=== PATIENT | male | born 1990 | race Caucasian/White ===

== ENCOUNTER 2017-08-23 14:55 | Emergency (ER) | payer SELFPAY ==
[~2017-08-23] VITALS: Ht 182.9 cm; Wt 72.6 kg
[~2017-08-23 14:55] MED LIST: ACHD5005 PO; AMOX500C2 PO; AZIT250T81 PO; CIPR500T4 PO; GENT5DRO30 RIGHT EAR; HYDR-1231 PO; HYDR-34 PO; HYDR-757 PO; KETO75CA PO; LAMO100T PO; LAMO150T3 PO; LAMO200T14 PO; LAMO200T2 PO; LEVE100015 PO; LEVE10006 PO; LEVE500T PO; LEVE500T6 PO; LORA1TAB PO; METR500T21 PO; NAPR-243 PO; NAPR220T66 PO; ONDA8TAB13 PO; [UNRECOGNIZED DRUG - CODE] PO
--- OUTSIDE RECORDS SUMMARY | 2017-08-23 15:00 | XMS REPORT ---
Author Author JACKY LOPEZ [employer] Address Unknown Phone Unavailable Care Team Providers Care Application Development Liaison Name Role Phone JACKY LOPEZ CP Unavailable Allergies, Adverse Reactions, Alerts Substance Reaction Event Type N.K.D.A. Info Not Available Non Drug Allergy Problems Problem Type Condition Code Onset Dates Condition Status Problem FH: diabetes mellitus Z83.3 Active Assessment Unspecified epilepsy without mention of intractable epilepsy G40.909 Active Problem Unspecified epilepsy without mention of intractable epilepsy G40.909 Active Assessment FH: diabetes mellitus Z83.3 Active Medications Medication Code System Code Instructions Start Date End Date Status Dosage Lamictal [facility] [address]-72 200 MG Orally 3 times a day. Before bed take 2 tablets. February 19, 2015 1 tablet Keppra [facility] [address]-35 1,000 mg 3 times a day Sep 11, 2014 1 Tablet by Po route 2 times per day to prevent seizures Procedures Procedure Coding System Code Date Office Visit, Est Pt., Level 3 CPT-4 98555 Sep 14, 2015 Vital Signs Date/Time: Sep 14, 2015 Temperature 97.3 F Weight 167.0 lbs Height 70 in BMI 23.96 Index Blood Pressure Diastolic 62 mmHg Blood Pressure Systolic 102 mmHg Cardiac Monitoring Heart Rate 68 bpm Results No Known Results Summary Purpose [employer] Submission
--- OUTSIDE RECORDS SUMMARY | 2017-08-23 15:00 | XMS REPORT ---
Author Author JORDAN CONDON Organization [employer] Address Unknown Phone Unavailable Care Team Providers Care Score Caller Name Role Phone JORDAN CONDON CP Unavailable Allergies, Adverse Reactions, Alerts Substance Reaction Event Type N.K.D.A. Info Not Available Non Drug Allergy Problems Problem Type Condition Code Onset Dates Condition Status Problem FH: diabetes mellitus Z83.3 Active Assessment Unspecified epilepsy without mention of intractable epilepsy G40.909 Active Problem Unspecified epilepsy without mention of intractable epilepsy G40.909 Active Medications Medication Code System Code Instructions Start Date End Date Status Dosage Lamictal [facility] [address]-50 200 mg Orally at bedtime 2 tablet Lorazepam [facility] [address]-39 1 MG Orally Once a day 1 tablet as needed Procedures Procedure Coding System Code Date Office Visit, Est Pt., Level 3 CPT-4 37922 Jun 28, 2016 Vital Signs Date/Time: Jun 28, 2016 Cardiac Monitoring Heart Rate 72 bpm Weight 159.0 lbs Height 70 in BMI 22.81 Index Blood Pressure Diastolic 68 mmHg Blood Pressure Systolic 110 mmHg Results No Known Results Summary Purpose [employer] Submission
--- OUTSIDE RECORDS SUMMARY | 2017-08-23 15:03 | XMS REPORT ---
Author Author RON MCKAY Organization [employer] Address Unknown Phone Unavailable Care Team Providers Care Edge Setter Name Role Phone RON MCKAY CP Unavailable Allergies No Known Allergies Problems Problem Type Condition Code Onset Dates Condition Status Problem FH: diabetes mellitus Z83.3 Active Problem Unspecified epilepsy without mention of intractable epilepsy G40.909 Active Medications Medication Code System Code Instructions Start Date End Date Status Dosage Lamotrigine [facility] [address]-25 200 mg Orally Twice a day at 0800 and 1400 1 tablet Lorazepam [facility] [address]-62 1 MG Orally Once a day 1 tablet as needed Lamictal [facility] [address]-03 400 mg Orally at bedtime 1 tablet Results No Known Results Summary Purpose eClinicalWorks Submission
--- OUTSIDE RECORDS SUMMARY | 2017-08-23 15:03 | XMS REPORT | Continuity of Care Document ---
Author Author [facility] Address Unknown Phone Unavailable Allergies Active Description Code Type Severity Reaction Onset Reported/Identified Relationship to Patient Clinical Status Yes No Known Drug Allergies [id number] Drug Allergy Unknown N/A 10/15/2013 Yes hydromorphone [id number] Drug Allergy Moderate hives 01/06/2015 Yes vancomycin [id number] Drug Allergy Moderate hives 01/06/2015 Medications There is no data. Problems Date Dx Coded Attending Type Code Diagnosis Diagnosed By 07/13/2012 Ot 780.39 OTHER CONVULSIONS 06/10/2013 DEBRA PGUH DO Ot 345.90 EPILEPSY UNSPEC W/O MENTION INTRACTABLE 06/10/2013 DEBRA PUGH DO Ot V15.81 HX OF PAST NONCOMPLIANCE 08/11/2013 LIONEL DAILY, MARIA ISABEL Patino Ot 345.10 GEN CONVULS EPILEPSY W/O MENT OF INTRACT 08/11/2013 MARIA ISABEL FLOWERS MD Ot 458.9 HYPOTENSION NOS 09/04/2013 TAHIR ABAD APRN S 780.8 GENERALIZED HYPERHIDROSIS 09/04/2013 TAHIR ABAD APRN S 786.2 COUGH 09/04/2013 TAHIR ABAD APRN S V18.0 FAMILY HISTORY OF DIABETES MELLITUS 09/04/2013 ERIC BOWEN GREGORY R 780.8 GENERALIZED HYPERHIDROSIS 09/04/2013 ERIC BOWEN GREGORY R 786.2 COUGH 09/04/2013 ERIC BOWEN GREGORY R V18.0 FAMILY HISTORY OF DIABETES MELLITUS 09/04/2013 ERIC BOWEN GREGORY R 780.8 GENERALIZED HYPERHIDROSIS 09/04/2013 ERIC BOWEN, GREGORY R 786.2 COUGH 09/04/2013 ERIC BOWEN GREGORY R V18.0 FAMILY HISTORY OF DIABETES MELLITUS 09/04/2013 ABAD REYES APRNINA R 780.8 GENERALIZED HYPERHIDROSIS 09/04/2013 ERIC BOWEN GREGORY R 786.2 COUGH 09/04/2013 ERIC BOWEN, GREGORY R V18.0 FAMILY HISTORY OF DIABETES MELLITUS 09/04/2013 ESTEFANY CARIDAD HILLA K 780.8 GENERALIZED HYPERHIDROSIS 09/04/2013 ESTEFANY HILLCARIDADA K 786.2 COUGH 09/04/2013 ESTEFANY HILL JENS K V18.0 FAMILY HISTORY OF DIABETES MELLITUS 09/04/2013 ESTEFANY HILL JENS K 780.8 GENERALIZED HYPERHIDROSIS 09/04/2013 ESTEFANY HILLCARIDADA K 786.2 COUGH 09/04/2013 ESTEFANY HILL JENS K V18.0 FAMILY HISTORY OF DIABETES MELLITUS 10/16/2013 MARIA TERESA DAILY, XAVIER Fletcher Ot 345.10 GEN CONVULS EPILEPSY W/O MENT OF INTRACT 10/16/2013 XAVIER MOREL MD Ot V04.81 ND FOR PROPHYLACTIC VACCIN AND INOCULATI 10/30/2013 GREGORY REYES APRN R 345.90 SEIZURE DISORDER 10/30/2013 GREGORY REYES APRN R 345.90 SEIZURE DISORDER 10/30/2013 GREGORY REYES APRN R 345.90 SEIZURE DISORDER 10/30/2013 JENS ALLISON DO K 345.90 SEIZURE DISORDER 10/30/2013 JENS ALLISON DO K 345.90 SEIZURE DISORDER 04/18/2014 KENNY FAJARDO DO Ot 825.25 FX METATARSAL-CLOSED 04/18/2014 KENNY FAJARDO DO Ot 959.7 LOWER LEG INJURY NOS 04/18/2014 KENNY FAJARDO DO Ot E000.8 OTHER EXTERNAL CAUSE STATUS 04/18/2014 KENNY FAJARDO DO Ot E006.2 ACTIVITIES INVOLVING GOLF 04/18/2014 KENNY FAJARDO DO Ot E849.4 ACCID IN RECREATION AREA 04/18/2014 KENNY FAJARDO DO Ot E928.9 ACCIDENT NOS 06/17/2014 JENS ALLISON DO Ot 305.1 TOBACCO USE DISORDER 06/17/2014 JENS ALLISON DO Ot 305.20 CANNABIS ABUSE-UNSPEC 06/17/2014 JENS ALLISON DO Ot 345.90 EPILEPSY UNSPEC W/O MENTION INTRACTABLE 06/17/2014 JENS ALLISON DO Ot V04.81 ND FOR PROPHYLACTIC VACCIN AND INOCULATI 08/22/2014 PEDRITO CAMPOS MD, Ot 305.00 ALCOHOL ABUSE-UNSPEC 08/22/2014 PEDRITO CAMPOS MD Ot 874.8 OPEN WOUND OF NECK NEC 08/22/2014 PEDRITO CAMPOS MD Ot E000.8 OTHER EXTERNAL CAUSE STATUS 08/22/2014 PEDRITO CAMPOS MD Ot E849.0 ACCIDENT IN HOME 08/22/2014 PEDRITO CAMPOS MD Ot E956 ESTELLA/SELF-INJ BY CUT INST 08/22/2014 PEDRITO CAMPOS MD Ot V06.1 [id number], COMBINED [ 08/22/2014 PEDRITO CAMPOS MD Ot V62.84 SUICIDAL IDEATION 09/13/2014 EMILY MARCOS ENGRAVER BLOCK Ot 521.00 UNSPEC DENTAL CARIES 09/13/2014 EMILY MARCOS ENGRAVER BLOCK Ot 525.9 DENTAL DISORDER NOS 12/20/2014 BREONNA DAILY, TREE Barrientos Ot 486 PNEUMONIA, ORGANISM NOS 12/20/2014 BREONNA DAILY, TREE Barrientos Ot 728.85 SPASM OF MUSCLE 12/20/2014 BREONNA DAILY, TREE Barrientos Ot 786.52 PAINFUL RESPIRATION 01/05/2015 ALLISON DO, JENS K Ot 305.1 01/05/2015 ALLISON DO, JENS K Ot 345.90 01/05/2015 ALLISON DO, JENS K Ot 486 01/05/2015 ALLISON DO, JENS K Ot 510.9 01/05/2015 ALLISON DO, JENS K Ot 511.9 01/05/2015 ALLISON DO, JENS K Ot 512.89 01/05/2015 ALLISON DO, JENS K Ot 783.0 01/05/2015 ALLISON DO, JENS K Ot 787.02 01/05/2015 ALLISON DO, EJNS K Ot V15.52 01/06/2015 ALLISON DO, JENS K Ot 305.1 01/06/2015 ALLISON DO, JENS K Ot 345.90 01/06/2015 ALLISON DO, JENS K Ot 486 01/06/2015 ALLISON DO, JENS K Ot 510.9 01/06/2015 ALLISON DO, JENS K Ot 511.9 01/06/2015 ALLISON DO, JENS K Ot 512.89 01/06/2015 ALLISON DO, JENS K Ot 783.0 01/06/2015 ALLISON DO, JENS K Ot 787.02 01/06/2015 ALLISON DO, JENS K Ot V15.52 01/06/2015 ALLISON DO, JENS K Ot 305.1 01/06/2015 ALLISON DO, JENS K Ot 345.90 01/06/2015 ALLISON DO, JENS K Ot 486 01/06/2015 ALLISON DO, JENS K Ot 510.9 01/06/2015 ALLISON DO, JENS K Ot 511.9 01/06/2015 ALLISON DO, JENS K Ot 512.89 01/06/2015 ALLISON DO, JENS K Ot 783.0 01/06/2015 ALLISON DO, JENS K Ot 787.02 01/06/2015 ALLISON DO, JENS K Ot V15.52 01/07/2015 ALLISON DO, JENS K Ot 305.1 01/07/2015 ALLISON DO, JENS K Ot 345.90 01/07/2015 ALLISON DO, JENS K Ot 486 01/07/2015 ALLISON DO, JENS K Ot 510.9 01/07/2015 ALLISON DO, JENS K Ot 511.9 01/07/2015 ALLISON DO, JENS K Ot 512.89 01/07/2015 ALLISON DO, JENS K Ot 783.0 01/07/2015 ALLISON DO, JENS K Ot 787.02 01/07/2015 ALLISON DO, JENS K Ot V15.52 01/09/2015 ALLISON DO, JENS K Ot 041.12 METHICILLIN RESISTANT STAPHYLOCOCCUS AUR 01/09/2015 ALLISON DO, JENS K Ot 305.1 TOBACCO USE DISORDER 01/09/2015 ALLISON DO, JENS K Ot 345.90 EPILEPSY UNSPEC W/O MENTION INTRACTABLE 01/09/2015 ALLISON DO, JENS K Ot 486 01/09/2015 ALLISON DO, JENS K Ot 510.9 EMPYEMA W/O FISTULA 01/09/2015 ALLISON DO, JENS K Ot 511.9 PLEURAL EFFUSION NOS 01/09/2015 ALLISON DO, JENS K Ot 512.89 OTHER PNEUMOTHORAX 01/09/2015 ALLISON DO, JENS K Ot 513.0 ABSCESS OF LUNG 01/09/2015 ALLISON DO, JENS K Ot 693.0 DRUG DERMATITIS NOS 01/09/2015 ALLISON DO, JENS K Ot 783.0 ANOREXIA 01/09/2015 ALLISON DO, JENS K Ot 787.02 NAUSEA ALONE 01/09/2015 ESTEFANY DO JENS K Ot E930.8 ADV EFF ANTIBIOTICS NEC 01/09/2015 JENS ALLISON DO Ot 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 01/13/2015 BREONNA DAILY, TREE Barrientos Ot 338.18 OTHER ACUTE POSTOPERATIVE PAIN 01/13/2015 BREONNA DAILY, TREE Barrientos Ot 786.50 CHEST PAIN NOS 01/29/2015 DONNELL DAILY, LEE ANN Lee Ot 998.59 OTH POSTOPER INFECTION 02/03/2015 MARIA TERESA DAILY, XAVIER Fletcher Ot 345.10 GEN CONVULS EPILEPSY W/O MENT OF INTRACT 02/03/2015 MARIA TERESA DAILY, XAVIER Fletcher Ot 907.0 LT EFF INTRACRANIAL INJ 02/03/2015 MARIA TERESA DAILY, XAVIER Fletcher Ot E929.9 LATE EFF ACCIDENT NOS 02/03/2015 AMRIA TERESA DAILY, XAVIER Fletcher Ot 345.10 02/03/2015 XAVIER MOREL MD Ot 907.0 02/03/2015 XAVIER MOREL MD Ot E929.9 09/03/2015 JENS ALLISON DO Ot F12.90 CANNABIS USE, UNSPECIFIED, UNCOMPLICATED 09/03/2015 JENS ALLISON DO Ot F17.210 NICOTINE DEPENDENCE, CIGARETTES, UNCOMPL 09/03/2015 JENS ALLISON DO Ot G40.209 LOCAL-REL SYMPTC EPI W CMPLX PRT SEIZ,NO 09/03/2015 JENS ALLISON DO Ot Z91.14 PATIENT'S OTHER NONCOMPLIANCE WITH MEDIC 10/17/2015 LIONEL DAILY, MARIA ISABEL Patino Ot G40.409 OTH GENERALIZED EPILEPSY, NOT INTRACTABL 11/04/2015 CARISA MALDONADO Ot F12.10 CANNABIS ABUSE, UNCOMPLICATED 11/04/2015 CARISA MALDONADO Ot F17.210 NICOTINE DEPENDENCE, CIGARETTES, UNCOMPL 11/04/2015 CARISA MALDONADO Ot N39.0 URINARY TRACT INFECTION, SITE NOT SPECIF 11/04/2015 CARISA MALDONADO Ot R11.2 NAUSEA WITH VOMITING, UNSPECIFIED 11/05/2015 CARISA MALDONADO Ot F12.10 11/05/2015 CARISA MALDONADO Ot F17.210 11/05/2015 CARISA MALDONADO Ot N39.0 11/05/2015 CARISA MALDONADO Ot R11.2 11/16/2015 LAINE ROCA MD, Ot F17.210 NICOTINE DEPENDENCE, CIGARETTES, UNCOMPL 11/16/2015 LAINE ROCA MD, Ot G40.409 OTH GENERALIZED EPILEPSY, NOT INTRACTABL 11/16/2015 LAINE ROCA MD, Ot S01.82XA LACERATION W FOREIGN BODY OF OTH PART OF 11/16/2015 LAINE ROCA MD, Ot S02.69XA FRACTURE OF MANDIBLE OF OTH SITE, INIT F 11/16/2015 LAINE ROCA MD, Ot S02.8XXA FRACTURES OF OTH SKULL AND FACIAL BONES, 11/16/2015 LAINE ROCA MD, Ot W01.10XA FALL SAME LEV FROM SLIP/TRIP W STRIKE AG 11/16/2015 LAINE ROCA MD, Ot Y92.[address] 11/16/2015 LAINE ROCA MD, Ot Y99.8 OTHER EXTERNAL CAUSE STATUS 11/16/2015 LAINE ROCA MD, Ot Z91.14 PATIENT'S OTHER NONCOMPLIANCE WITH MEDIC 02/24/2016 KENNY FAJARDO DO Ot 825.25 FX METATARSAL-CLOSED 02/24/2016 KENNY FAJARDO DO Ot 959.7 LOWER LEG INJURY NOS 02/24/2016 KENNY FAJARDO DO Ot E000.8 OTHER EXTERNAL CAUSE STATUS 02/24/2016 KENNY FAJARDO DO Ot E006.2 ACTIVITIES INVOLVING GOLF 02/24/2016 KENNY FAJARDO DO Ot E849.4 ACCID IN RECREATION AREA 02/24/2016 KENNY FAJARDO DO Ot E928.9 ACCIDENT NOS 02/24/2016 TREE RAVI MD Ot 486 PNEUMONIA, ORGANISM NOS 02/24/2016 TREE RAVI MD Ot 728.85 SPASM OF MUSCLE 02/24/2016 TREE RAVI MD Ot 786.52 PAINFUL RESPIRATION 06/06/2016 JENS ALLISON DO, Ot F17.210 NICOTINE DEPENDENCE, CIGARETTES, UNCOMPL 06/06/2016 JENS ALLISON DO, Ot G40.909 EPILEPSY, UNSP, NOT INTRACTABLE, WITHOUT 06/06/2016 JENS ALLISON DO, Ot Z23 ENCOUNTER FOR IMMUNIZATION 06/06/2016 JENS ALLIOSN DO, Ot Z91.14 PATIENT'S OTHER NONCOMPLIANCE WITH MEDIC Procedures Code Description [place] [address] ROUTINE VENIPUNCTURE 09/04/2013 18438 XRAY CHEST 2 VIEW 09/04/2013 84521 UA LONG DIP 09/04/[id number] GFR CALC (RESULT ONLY) 09/04/2013 68524 CMP 09/04/2013 02985 CBC 09/05/2013 02239 ROUTINE VENIPUNCTURE 02/20/2014 90091 CMP 02/20/20145070076 GFR CALC (RESULT ONLY) 02/20/2014 34.91 01/01/2015 32.39 01/05/2015 34.51 01/05/2015 Results Test Result Range Complete urinalysis with reflex to culture - 06/05/16 02:05 Urine color determination YELLOW NRG Urine clarity determination CLEAR NRG Urine pH measurement by test strip 5 5-9 Specific gravity of urine by test strip 1.025 1.016- 1.022 Urine protein assay by test strip, semi-quantitative NEGATIVE NEGATIVE Urine glucose detection by automated test strip NEGATIVE NEGATIVE Erythrocytes detection in urine sediment by light microscopy NEGATIVE NEGATIVE Urine ketones detection by automated test strip 3+ NEGATIVE Urine nitrite detection by test strip NEGATIVE NEGATIVE Urine total bilirubin detection by test strip NEGATIVE NEGATIVE Urine urobilinogen measurement by automated test strip (mass/volume) NORMAL NORMAL Urine leukocyte esterase detection by dipstick NEGATIVE NEGATIVE Automated urine sediment erythrocyte count by microscopy (number/high power field) NONE NRG Automated urine sediment leukocyte count by microscopy (number/high power field ) NONE NRG Bacteria detection in urine sediment by light microscopy NEGATIVE NRG Squamous epithelial cells detection in urine sediment by light microscopy 2-5 NRG Crystals detection in urine sediment by light microscopy NONE NRG Casts detection in urine sediment by light microscopy NONE NRG Mucus detection in urine sediment by light microscopy SMALL NRG Complete urinalysis with reflex to culture NO NRG Urine drug screening test - 06/05/16 02:05 Urine phencyclidine detection by screening method NEGATIVE NEGATIVE Urine benzodiazepines detection by screening method POSITIVE NEGATIVE Urine cocaine detection NEGATIVE NEGATIVE Urine amphetamines detection by screening method NEGATIVE NEGATIVE Urine methamphetamine detection by screening method NEGATIVE NEGATIVE Urine cannabinoids detection by screening method POSITIVE NEGATIVE Urine opiates detection by screening method NEGATIVE NEGATIVE Urine barbiturates detection NEGATIVE NEGATIVE Screening urine tricyclic antidepressants detection NEGATIVE NEGATIVE Urine methadone detection by screening method NEGATIVE NEGATIVE Urine oxycodone detection NEGATIVE NEGATIVE Urine propoxyphene detection NEGATIVE NEGATIVE Urine buprenophrine screen NEGATIVE NEGATIVE Complete blood count (CBC) with automated white blood cell (WBC) differential - 06/05/16 14:57 Blood leukocytes automated count (number/volume) 16.8 10*3/uL 4.3-11.0 Blood erythrocytes automated count (number/volume) 4.77 10*6/uL 4.35-5.85 Venous blood hemoglobin measurement (mass/volume) 14.6 g/dL 13.3-17.7 Blood hematocrit (volume fraction) 43 % 40-54 Automated erythrocyte mean corpuscular volume 90 [foz_us] 80-99 Automated erythrocyte mean corpuscular hemoglobin (mass per erythrocyte) 31 pg 25-34 Automated erythrocyte mean corpuscular hemoglobin concentration measurement ( mass/volume) 34 g/dL 32-36 Automated erythrocyte distribution width ratio 12.9 % 10.0-14.5 Automated blood platelet count (count/volume) 317 10*3/uL 130-400 Automated blood platelet mean volume measurement 10.5 [foz_us] 7.4-10.4 Automated blood neutrophils/100 leukocytes 89 % 42-75 Automated blood lymphocytes/100 leukocytes 6 % 12-44 Blood monocytes/100 leukocytes 6 % 0-12 Automated blood eosinophils/100 leukocytes 0 % 0-10 Automated blood basophils/100 leukocytes 0 % 0-10 Blood neutrophils automated count (number/volume) 14.9 10*3 1.8-7.8 Blood lymphocytes automated count (number/volume) 0.9 10*3 1.0-4.0 Blood monocytes automated count (number/volume) 0.9 10*3 0.0-1.0 Automated eosinophil count 0.1 10*3/uL 0.0-0.3 Automated blood basophil count (count/volume) 0.0 10*3/uL 0.0-0.1 Comprehensive metabolic panel - 06/05/16 14:57 Serum or plasma sodium measurement (moles/volume) 139 mmol/L 135-145 Serum or plasma potassium measurement (moles/volume) 4.2 mmol/L 3.6-5.0 Serum or plasma chloride measurement (moles/volume) 106 mmol/L 98-107 Carbon dioxide 19 mmol/L 21-32 Serum or plasma anion gap determination (moles/volume) 14 mmol/L 5-14 Serum or plasma urea nitrogen measurement (mass/volume) 8 mg/dL 7-18 Serum or plasma creatinine measurement (mass/volume) 1.01 mg/dL 0.60-1.30 Serum or plasma urea nitrogen/creatinine mass ratio 8 NRG Serum or plasma creatinine measurement with calculation of estimated glomerular filtration rate > NRG Serum or plasma glucose measurement (mass/volume) 87 mg/dL 70-105 Serum or plasma calcium measurement (mass/volume) 9.3 mg/dL 8.5-10.1 Serum or plasma total bilirubin measurement (mass/volume) 0.4 mg/dL 0.1-1.0 Serum or plasma alkaline phosphatase measurement (enzymatic activity/volume) 77 U/L 40-136 Serum or plasma aspartate aminotransferase measurement (enzymatic activity/ volume) 20 U/L 5-34 Serum or plasma alanine aminotransferase measurement (enzymatic activity/volume ) 18 U/L 0-55 Serum or plasma protein measurement (mass/volume) 6.8 g/dL 6.4-8.2 Serum or plasma albumin measurement (mass/volume) 4.5 g/dL 3.2-4.5 Serum or plasma thyrotropin measurement by detection limit <=0.05 miu/l (units/ volume) - 06/05/16 14:57 Serum or plasma thyrotropin measurement by detection limit <=0.05 miu/l (units/ volume) 1.64 u[iU]/mL 0.35-4.94 Blood manual differential performed detection - 06/05/16 14:57 Blood monocytes/100 leukocytes 3 % NRG Manual blood segmented neutrophils/100 leukocytes 88 % NRG Blood band neutrophils/100 leukocytes 1 % NRG Manual blood lymphocytes/100 leukocytes 8 % NRG Manual eosinophils/100 leukocytes in nose 0 % NRG Manual blood basophils/100 leukocytes 0 % NRG Blood erythrocyte morphology finding identification NORMAL NRG Serum or plasma ethanol measurement (mass/volume) - 06/05/16 14:57 Serum or plasma ethanol measurement (mass/volume) < mg/dL <10 Complete blood count (CBC) with automated white blood cell (WBC) differential - 06/06/16 03:50 Blood leukocytes automated count (number/volume) 14.1 10*3/uL 4.3-11.0 Blood erythrocytes automated count (number/volume) 4.33 10*6/uL 4.35-5.85 Venous blood hemoglobin measurement (mass/volume) 13.3 g/dL 13.3-17.7 Blood hematocrit (volume fraction) 39 % 40-54 Automated erythrocyte mean corpuscular volume 90 [foz_us] 80-99 Automated erythrocyte mean corpuscular hemoglobin (mass per erythrocyte) 31 pg 25-34 Automated erythrocyte mean corpuscular hemoglobin concentration measurement ( mass/volume) 34 g/dL 32-36 Automated erythrocyte distribution width ratio 13.0 % 10.0-14.5 Automated blood platelet count (count/volume) 299 10*3/uL 130-400 Automated blood platelet mean volume measurement 10.8 [foz_us] 7.4-10.4 Automated blood neutrophils/100 leukocytes 77 % 42-75 Automated blood lymphocytes/100 leukocytes 13 % 12-44 Blood monocytes/100 leukocytes 8 % 0-12 Automated blood eosinophils/100 leukocytes 1 % 0-10 Automated blood basophils/100 leukocytes 0 % 0-10 Blood neutrophils automated count (number/volume) 10.9 10*3 1.8-7.8 Blood lymphocytes automated count (number/volume) 1.9 10*3 1.0-4.0 Blood monocytes automated count (number/volume) 1.2 10*3 0.0-1.0 Automated eosinophil count 0.1 10*3/uL 0.0-0.3 Automated blood basophil count (count/volume) 0.0 10*3/uL 0.0-0.1 Comprehensive metabolic panel - 06/06/16 03:50 Serum or plasma sodium measurement (moles/volume) 139 mmol/L 135-145 Serum or plasma potassium measurement (moles/volume) 3.8 mmol/L 3.6-5.0 Serum or plasma chloride measurement (moles/volume) 108 mmol/L 98-107 Carbon dioxide 19 mmol/L 21-32 Serum or plasma anion gap determination (moles/volume) 12 mmol/L 5-14 Serum or plasma urea nitrogen measurement (mass/volume) 8 mg/dL 7-18 Serum or plasma creatinine measurement (mass/volume) 0.84 mg/dL 0.60-1.30 Serum or plasma urea nitrogen/creatinine mass ratio 10 NRG Serum or plasma creatinine measurement with calculation of estimated glomerular filtration rate > NRG Serum or plasma glucose measurement (mass/volume) 84 mg/dL 70-105 Serum or plasma calcium measurement (mass/volume) 8.6 mg/dL 8.5-10.1 Serum or plasma total bilirubin measurement (mass/volume) 0.7 mg/dL 0.1-1.0 Serum or plasma alkaline phosphatase measurement (enzymatic activity/volume) 76 U/L 40-136 Serum or plasma aspartate aminotransferase measurement (enzymatic activity/ volume) 18 U/L 5-34 Serum or plasma alanine aminotransferase measurement (enzymatic activity/volume ) 15 U/L 0-55 Serum or plasma protein measurement (mass/volume) 6.2 g/dL 6.4-8.2 Serum or plasma albumin measurement (mass/volume) 4.0 g/dL 3.2-4.5 Encounters ACCT No. Visit Date/Time Discharge Status Pt. Type Provider Facility Loc./Unit Complaint [id number] 08/24/2014 00:00:00 08/24/2014 23:59:59 CLS Outpatient JENS ALLISON DO [id number] 07/06/2014 14:14:00 07/06/2014 23:59:59 CLS Outpatient JENS ALLISON DO [id number] 06/24/2014 13:36:00 06/24/2014 23:59:59 CLS Outpatient GREGORY REYES APRN [id number] 02/20/2014 13:31:00 02/20/2014 23:59:59 CLS Outpatient GREGORY REYES APRN [id number] 10/30/2013 10:54:00 10/30/2013 23:59:59 CLS Outpatient GREGORY REYES APRN [id number] 09/04/2013 09:45:00 09/04/2013 23:59:59 CLS Outpatient TAHIR ABAD APRN [id number] 06/05/2016 18:27:00 06/06/2016 10:40:00 DIS Inpatient JENS ALLISON DO [facility] ICU RECURRENT SEIZURES, MEDICATION NONCOMPLIANCE [id number] 11/15/2015 19:25:00 11/16/2015 11:11:00 DIS Inpatient LAINE ROCA MD [facility] 4TH FACIAL FRACTURE, UNCONTROLLED SEIZURE DISORDER [id number] 11/04/2015 17:50:00 11/04/2015 21:30:00 DIS Emergency CARISA MALDONADO [facility] ER [id number] 10/16/2015 15:10:00 10/17/2015 11:45:00 DIS Inpatient MARIA ISABEL FLOWERS MD [facility] ICU AGITATED DELIRIUM SEIZURES [id number] 09/02/2015 21:19:00 09/03/2015 13:10:00 DIS Inpatient JENS ALLISON DO [facility] 4TH SEIZURE,MULTIPLE [id number] 02/02/2015 13:19:00 02/03/2015 11:10:00 DIS Inpatient MARIA TERESA DAILY, XAVIER Fletcher [facility] SURGICAL [id number] 01/29/2015 22:25:00 01/29/2015 23:08:00 DIS Emergency LEE ANN JACOBO MD [facility] ER [id number] 01/13/2015 20:24:00 01/13/2015 22:06:00 DIS Emergency BREONNA DAILY, TREE Barrientos [facility] ER [id number] 01/01/2015 10:42:00 01/09/2015 11:15:00 DIS Inpatient JENS ALLISON DO [facility] SURGICAL [id number] 12/20/2014 09:24:00 12/20/2014 10:31:00 DIS Emergency TREE RAVI MD [facility] ER [id number] 09/13/2014 13:35:00 09/13/2014 14:10:00 DIS Emergency EMILY MARCOS APRN [facility] ER [id number] 08/22/2014 05:16:00 08/22/2014 09:03:00 DIS Emergency PEDRITO CAMPOS MD [facility] ER [id number] 06/16/2014 03:32:00 06/17/2014 14:40:00 DIS Inpatient JENS ALLISON DO [facility] ICU [id number] 04/18/2014 10:20:00 04/18/2014 11:04:00 DIS Emergency KENNY FAJARDO DO [facility] ER [id number] 10/15/2013 14:58:00 10/16/2013 11:45:00 DIS Inpatient MARIA TERESA DAILY, XAVIER Fletcher [address] [id number] 08/10/2013 21:20:00 08/11/2013 15:44:00 DIS Inpatient LIONEL DAILY, MARIA ISABEL Patino Via [address] [id number] 06/10/2013 12:14:00 06/10/2013 14:45:00 DIS Emergency DEBRA PUGH DO [facility] [id number] 07/13/2012 20:00:00 Document Registration
--- NOTE | 2017-08-23 15:04 | ED Neurological Problem ---
General Stated Complaint: SEIZURE Source: patient Exam Limitations: no limitations History of Present Illness Time seen by provider: 15:03 Initial Comments To ER per EMS from home with reports of seizure-like activity earlier today and strange behaviors. He was picked up by police for acting strangely and taken to his mother's house. She then called EMS. Patient has a known seizure disorder and has been known to be noncompliant with taking his Lamictal. He states that he does not know he's had any seizures today. He states that he takes his Lamictal and has not missed any doses. However, external medication history shows that he has not had any filled since the one-month supply filled on June 12. Timing/Duration: 1 week Severity: moderate Associated Symptoms: seizures Allergies and Home Medications Allergies Coded Allergies: hydromorphone (Verified Allergy, Intermediate, hives, 01/06/15) dilaudid administer via IV in recovery, pt arm swell and broke out in hives. vancomycin (Unverified Allergy, Intermediate, hives, 01/06/15) pt stated Home Medications Lamotrigine 200 Mg Tablet, 400 MG PO HS, (Reported) LAST FILLED 16 TAKES 2 (200MG) TABLETS Lamotrigine 200 Mg Tablet, 200 MG PO 0800,1400, (Reported) LAST FILLED -18-16 Lamotrigine 200 Mg Tab, 200 MG PO BID, #10 Prescribed by: EMILY MARCOS on 08/23/17 1730 Lorazepam 1 Mg Tablet, 1 MG PO DAILY PRN for SEIZURE ACTIVITY, (Reported) LAST FILLED #30 10-08-16 Constitutional: see HPI Eyes: No Symptoms Reported Ears, Nose, Mouth, Throat: no symptoms reported Respiratory: no symptoms reported Cardiovascular: no symptoms reported Genitourinary: no symptoms reported Musculoskeletal: no symptoms reported Skin: no symptoms reported Psychiatric/Neurological: No Symptoms Reported Past Dzvsaac-Tsfkgv-Umwzbn Hx Patient Social History Alcohol Beverage of Choice: Other Drug of Choice: Marjuana Type Used: Cigarettes Recent Hopitalizations: No Immunizations Up To Date Tetanus Booster (TDap): Less than 5yrs PED Vaccines UTD: No Date of Pneumonia Vaccine: Mar 08, 2010 Date of Influenza Vaccine: Jul 27, 2014 Seasonal Allergies Seasonal Allergies: No Surgeries Surgeries: Lobectomy Respiratory Respiratory Disorders: Pneumonia Currently Using CPAP: No Currently Using BIPAP: No Neurological Neurological Disorders: Seizure Disorder Reproductive System Hx Reproductive Disorders: No Sexually Transmitted Disease: No HIV/AIDS: No HEENT Loss of Vision: Denies Hearing Impairment: Denies Psychosocial Behavioral Health Disorders: Suicide Attempts Blood Transfusions Adverse Reaction to a Blood Tr: No Family Medical History Significant Family History: No Pertinent Family Hx, Seizures Family Medial History: Family history: Diabetes mellitus 03 FATHER, Onset:40's - 50 Family history: Hypertension 03 FATHER, Onset:40's - 50 Psychotic disorder 09 SISTER (AUTISTIC) Seizure disorder 03 FATHER, Onset:15's - 20 Physical Exam Vital Signs Vital Sign - Last 12Hours 08/23/17 14:55 Temp 98.0 Pulse 101 Resp 18 B/P (MAP) 136/96 (109) Pulse Ox 97 Capillary Refill : General Appearance: WD/WN, no apparent distress HEENT: PERRL/EOMI, normal ENT inspection Neck: non-tender, full range of motion Respiratory: no respiratory distress, no accessory muscle use Cardiovascular: regular rate, rhythm, no murmur Gastrointestinal: normal bowel sounds, non tender Extremities: normal range of motion, non-tender Neurologic/Psychiatric: alert, other (repetitive questioning asking, appears disoriented but is alert. Girlfriend arrives and states that the patient ran out of his Lamictal 3 days ago.) Crainal Nerves: normal hearing, normal speech Laceration Repair : Suture Size: 5-0 Progress/Results/Core Measures Results/Orders Lab Results Laboratory Tests Test 08/23/17 14:58 08/23/17 16:51 Range/Units White Blood Count 16.5 H 4.3-11.0 10^3/uL Red Blood Count 5.02 4.35-5.85 10^6/uL Hemoglobin 15.0 13.3-17.7 G/DL Hematocrit 44 40-54 % Mean Corpuscular Volume 87 80-99 FL Mean Corpuscular Hemoglobin 30 25-34 PG Mean Corpuscular Hemoglobin Concent 34 32-36 G/DL Red Cell Distribution Width 12.7 10.0-14.5 % Platelet Count 345 130-400 10^3/uL Mean Platelet Volume 10.5 H 7.4-10.4 FL Neutrophils (%) (Auto) 76 H 42-75 % Lymphocytes (%) (Auto) 15 12-44 % Monocytes (%) (Auto) 9 0-12 % Eosinophils (%) (Auto) 0 0-10 % Basophils (%) (Auto) 0 0-10 % Neutrophils # (Auto) 12.5 H 1.8-7.8 X 10^3 Lymphocytes # (Auto) 2.5 1.0-4.0 X 10^3 Monocytes # (Auto) 1.5 H 0.0-1.0 X 10^3 Eosinophils # (Auto) 0.1 0.0-0.3 10^3/uL Basophils # (Auto) 0.0 0.0-0.1 10^3/uL Neutrophils % (Manual) 72 % Lymphocytes % (Manual) 15 % Monocytes % (Manual) 9 % Eosinophils % (Manual) 0 % Basophils % (Manual) 0 % Band Neutrophils 4 % Blood Morphology Comment NORMAL Sodium Level 139 135-145 MMOL/L Potassium Level 3.0 L 3.6-5.0 MMOL/L Chloride Level 100 98-107 MMOL/L Carbon Dioxide Level 25 21-32 MMOL/L Anion Gap 14 5-14 MMOL/L Blood Urea Nitrogen 12 7-18 MG/DL Creatinine 1.19 0.60-1.30 MG/DL Estimat Glomerular Filtration Rate > 60 BUN/Creatinine Ratio 10 Glucose Level 128 H 70-105 MG/DL Calcium Level 9.9 8.5-10.1 MG/DL Total Bilirubin 1.2 H 0.1-1.0 MG/DL Aspartate Amino Transf (AST/SGOT) 21 5-34 U/L Alanine Aminotransferase (ALT/SGPT) 18 0-55 U/L Alkaline Phosphatase 80 40-136 U/L Total Protein 8.2 6.4-8.2 GM/DL Albumin 4.8 H 3.2-4.5 GM/DL Salicylates Level < 5.0 L 5.0-20.0 MG/DL Acetaminophen Level < 10 L 10-30 UG/ML Serum Alcohol < 10 <10 MG/DL Urine Color YELLOW Urine Clarity SLIGHTLY CLOUDY Urine pH 5 5-9 Urine Specific Veteran 1.025 H 1.016-1.022 Urine Protein 3+ H NEGATIVE Urine Glucose (UA) NEGATIVE NEGATIVE Urine Ketones 3+ H NEGATIVE Urine Nitrite NEGATIVE NEGATIVE Urine Bilirubin NEGATIVE NEGATIVE Urine Urobilinogen NORMAL NORMAL MG/DL Urine Leukocyte Esterase 1+ H NEGATIVE Urine RBC (Auto) 1+ H NEGATIVE Urine RBC 2-5 H /HPF Urine WBC 2-5 /HPF Urine Crystals PRESENT H /LPF Urine Amorphous Sediment FEW OTIS URATES H /LPF Urine Bacteria NONE /HPF Urine Casts PRESENT /LPF Urine Granular Casts 2-5 H /LPF Urine Mucus NEGATIVE /LPF Urine Culture Indicated NO Urine Opiates Screen NEGATIVE NEGATIVE Urine Oxycodone Screen NEGATIVE NEGATIVE Urine Methadone Screen NEGATIVE NEGATIVE Urine Propoxyphene Screen NEGATIVE NEGATIVE Urine Barbiturates Screen NEGATIVE NEGATIVE Ur Tricyclic Antidepressants Screen NEGATIVE NEGATIVE Urine Phencyclidine Screen NEGATIVE NEGATIVE Urine Amphetamines Screen NEGATIVE NEGATIVE Urine Methamphetamines Screen NEGATIVE NEGATIVE Urine Benzodiazepines Screen NEGATIVE NEGATIVE Urine Cocaine Screen NEGATIVE NEGATIVE Urine Cannabinoids Screen POSITIVE H NEGATIVE My Orders Orders - EMILY MARCOS APRN Cbc With Automated Diff (08/23/17 15:01) Comprehensive Metabolic Panel (08/23/17 15:01) Ua Culture If Indicated (08/23/17 15:01) Salicylate (08/23/17 15:01) Acetaminophen (08/23/17 15:01) Ekg Tracing (08/23/17 15:01) Ct Head Wo (08/23/17 15:01) Saline Lock/Iv-Start (08/23/17 15:01) Alcohol (08/23/17 15:01) Drug Screen Stat (Urine) (08/23/17 15:01) Lorazepam Injection (Ativan Injection) (08/23/17 15:15) Manual Differential (08/23/17 14:58) Lorazepam Injection (Ativan Injection) (08/23/17 15:30) Ns Iv 1000 Ml (Sodium Chloride 0.9%) (08/23/17 15:45) Potassium Chloride (Tablet) (K Dur Table (08/23/17 15:45) Lamotrigine Tablet (Lamictal Tablet) (08/23/17 17:30) Medications Given in ED Current Medications Medications Dose Ordered Sig/Hiren Route Start Time Stop Time Status Last Admin Dose Admin Potassium Chloride 40 meq ONCE ONCE PO 08/23/17 15:45 08/23/17 15:46 DC 08/23/17 16:04 40 MEQ Vital Signs/I&O Vital Sign - Last 12Hours 08/23/17 14:55 Temp 98.0 Pulse 101 Resp 18 B/P (MAP) 136/96 (109) Pulse Ox 97 Progress Note : Progress Note 1740-Patient is still confused or at least pretends to be confused. He states " I didn't even know it was Decem, I mean August". I discussed with his girlfriend that this may be a conversion disorder which would be a psychiatric illness manifesting with neurologic symptoms and that this may be "a show". Up until this point he has not been able to repeat anything that I've said or carry on a conversation but upon hearing me say this, he states very clearly "What do you mean this is a show?!" Departure Impression Impression: Primary Impression: Seizure disorder Additional Impressions: Non compliance w medication regimen Post-ictal confusion Disposition: HOME, SELF-CARE Condition: Stable Departure-Patient Inst. Decision time for Depature: 17:29 Referrals: [facility] [place] (PCP/Family) Primary Care Physician Patient Instructions: Seizures, Adult (DC) Add. Discharge Instructions: 1. Take your medicine for your seizures. 2. Return to ER for fevers, other concerns Scripts Lamotrigine (Lamictal) 200 Mg Tab 200 MG PO BID, #10 TAB Prov: EMILY MARCOS APRN 08/23/17 EMILY MARCOS APRN Aug 23, 2017 15:04
[2017-08-23 15:07] LABS: BASOPHILS % (AUTO) 0 % (0-10); EOSINOPHILS # (AUTO) 0.1 10^3/uL (0.0-0.3); EOSINOPHILS % (AUTO) 0 % (0-10); LYMPHOCYTES # (AUTO) 2.5 X 10^3 (1.0-4.0); LYMPHOCYTES % (AUTO) 15 % (12-44); MEAN CORPUSCULAR HEMOGLOBIN 30 PG (25-34); MEAN CORPUSCULAR HGB CONC 34 G/DL (32-36); MEAN CORPUSCULAR VOLUME 87 FL (80-99); MEAN PLATELET VOLUME 10.5 FL (7.4-10.4); MONOCYTES # (AUTO) 1.5 X 10^3 (0.0-1.0); MONOCYTES % (AUTO) 9 % (0-12); NEUTROPHILS # (AUTO) 12.5 X 10^3 (1.8-7.8); NEUTROPHILS % (AUTO) 76 % (42-75); PLATELET COUNT 345 10^3/uL (130-400); RED BLOOD COUNT 5.02 10^6/uL (4.35-5.85); RED CELL DISTRIBUTION WIDTH 12.7 % (10.0-14.5); WHITE BLOOD COUNT 16.5 10^3/uL (4.3-11.0)
[2017-08-23] MEDS ORDERED: LORazepam INJ 2 MG/ML (ATIVAN) VIAL IVP ONE (15:15)
[2017-08-23 15:25] LABS: ALANINE AMINOTRANSFERASE 18 U/L (0-55); ALBUMIN 4.8 GM/DL (3.2-4.5); ALCOHOL < 10 MG/DL (<10); ANION GAP 14 MMOL/L (5-14); ASPARTATE AMINO TRANSFERASE 21 U/L (5-34); BILIRUBIN,TOTAL 1.2 MG/DL (0.1-1.0); BLOOD UREA NITROGEN 12 MG/DL (7-18); BUN/CREATININE RATIO 10; CALCIUM 9.9 MG/DL (8.5-10.1); CARBON DIOXIDE 25 MMOL/L (21-32); CHLORIDE 100 MMOL/L (98-107); CREATININE SERUM 1.19 MG/DL (0.60-1.30); GFR ESTIMATED > 60; GLUCOSE 128 MG/DL (70-105); SALICYLATE < 5.0 MG/DL (5.0-20.0); SODIUM 139 MMOL/L (135-145); TOTAL PROTEIN 8.2 GM/DL (6.4-8.2)
[2017-08-23 15:26] LABS: ACETAMINOPHEN < 10 UG/ML (10-30)
[2017-08-23 15:37] LABS: BAND NEUTROPHILS 4 %; BASOPHILS % (MANUAL) 0 %; EOSINOPHILS % (MANUAL) 0 %; LYMPHOCYTES % (MANUAL) 15 %; NEUTROPHILS % (MANUAL) 72 %
[2017-08-23] MEDS: KCL 20 MEQ TAB (K-DUR) PO ONE (16:04)
[2017-08-23] MEDS: NS IV 1000 ML 1,000 ML IV SCH (16:04)
[2017-08-23] MEDS: LORazepam INJ 2 MG/ML (ATIVAN) VIAL IVP ONE (16:04)
--- NOTE | 2017-08-23 16:27 | Diagnostic Imaging Report ---
EXAM: CT head. TECHNIQUE: Noncontrast axial images of the brain were obtained. INDICATION: Seizures. FINDINGS: There is no intracranial hemorrhage, edema or mass effect. The brain parenchyma appears unremarkable. No hydrocephalus. The visualized portions of the orbits and paranasal sinuses appear unremarkable. IMPRESSION: Unremarkable study. Dictated by: Dictated on workstation # [id number]
[2017-08-23 17:09] LABS: BILIRUBIN,URINE NEGATIVE (NEGATIVE); KETONES,URINE 3+ (NEGATIVE); LEUKOCYTE ESTERASE ,URINE 1+ (NEGATIVE); NITRITE,URINE NEGATIVE (NEGATIVE); PH,URINE 5 (5-9); PROTEIN,URINE 3+ (NEGATIVE); UROBILINOGEN,URINE NORMAL (NORMAL)
[2017-08-23] MEDS ORDERED: NF-LAMO200 PO (17:30)
[2017-08-23 17:48] VITALS: BP 134/85
== END 2017-08-23 17:48 | disposition home or self-care (01) ==
LOC: EDUNIT# 14:55 → ER 14:56
DX: G40.409 Other generalized epilepsy and epileptic syndromes, not intractable, without status epilepticus (principal); Z91.14 Patient's other noncompliance with medication regimen; Z87.01 Personal history of pneumonia (recurrent); Z91.5 Personal history of self-harm
CPT/HCPCS: 36415; 70450; 80053; 80306; 80320; 80329; 81000; 85007; 85025; 85027; 93005

== ENCOUNTER 2019-05-26 21:22 | Emergency (ER) | payer SELFPAY ==
[~2019-05-26] VITALS: Ht 180 cm; Wt 68.0 kg
[~2019-05-26 21:22] MED LIST changes: +METR-145 PO; -METR500T21 PO; +NF-LAMO200 PO
[2019-05-26] MEDS ORDERED: TETANUS,DIPTH,PERTUSS P/F (BOOSTRIX) 0.5 ML VIAL IM ONE (21:30)
[2019-05-26 21:36] LABS: BASOPHILS # (AUTO) 0.1 10^3/uL (0.0-0.1); BASOPHILS % (AUTO) 1 % (0-10); EOSINOPHILS # (AUTO) 0.4 10^3/uL (0.0-0.3); EOSINOPHILS % (AUTO) 5 % (0-10); HEMATOCRIT 42 % (40-54); HEMOGLOBIN 13.6 G/DL (13.3-17.7); LYMPHOCYTES # (AUTO) 2.9 X 10^3 (1.0-4.0); LYMPHOCYTES % (AUTO) 36 % (12-44); MEAN CORPUSCULAR HEMOGLOBIN 30 PG (25-34); MEAN CORPUSCULAR HGB CONC 33 G/DL (32-36); MEAN CORPUSCULAR VOLUME 91 FL (80-99); MONOCYTES # (AUTO) 0.6 X 10^3 (0.0-1.0); MONOCYTES % (AUTO) 7 % (0-12); NEUTROPHILS # (AUTO) 4.1 X 10^3 (1.8-7.8); NEUTROPHILS % (AUTO) 51 % (42-75); PLATELET COUNT 386 10^3/uL (130-400); WHITE BLOOD COUNT 8.1 10^3/uL (4.3-11.0)
[2019-05-26 21:51] LABS: ALANINE AMINOTRANSFERASE 26 U/L (0-55); ALBUMIN 4.4 GM/DL (3.2-4.5); ALKALINE PHOSPHATASE 92 U/L (40-136); BILIRUBIN,TOTAL 0.3 MG/DL (0.1-1.0); BUN/CREATININE RATIO 8; CALCIUM 9.6 MG/DL (8.5-10.1); CARBON DIOXIDE 20 MMOL/L (21-32); CHLORIDE 106 MMOL/L (98-107); CREATININE SERUM 1.13 MG/DL (0.60-1.30); GFR ESTIMATED > 60; GLUCOSE 84 MG/DL (70-105); POTASSIUM 3.8 MMOL/L (3.6-5.0); SODIUM 142 MMOL/L (135-145)
[2019-05-26 22:03] LABS: ACETAMINOPHEN < 10 UG/ML (10-30)
--- NOTE | 2019-05-26 22:04 | Diagnostic Imaging Report ---
PROCEDURE: CT head and CT cervical spine without contrast. TECHNIQUE: Multiple contiguous axial images were obtained through the brain and cervical spine without the use of intravenous contrast. Sagittal and coronal reformations through the cervical spine were then performed. Auto Exposure Controls were utilized during the CT exam to meet ALARA standards for radiation dose reduction. INDICATION: Seizure. Facial injury. COMPARISON: 11/15/2015. FINDINGS: CT head: No intracranial hemorrhage, mass effect, hydrocephalus or extra-axial fluid collections. No CT evidence of a territorial infarction. Osseous structures are intact. The visualized paranasal sinuses and mastoids are clear. CT cervical spine: Normal alignment. Vertebral body heights preserved. Stable chronic C7 transverse process fracture. No acute fractures. No evidence of high-grade spinal canal narrowing on this non-contrast exam. The visualized paravertebral soft tissues are unremarkable. IMPRESSION: No acute intracranial or cervical spine CT findings. Dictated by: Dictated on workstation # [id number]
--- NOTE | 2019-05-26 22:14 | ED Neurological Problem ---
General Chief Complaint: Neurological Problems Stated Complaint: SEIZURE Nursing Triage Note: Pt to [facility] 8 via [facility] with C/O having seizure at [facility] approx 2039 this evening. Pt has Hx of seizures, reports taking meds as directed. Pt hit head, c-collar applied. Pt alert to person and place upon arrival. Nursing Sepsis Screen: No Definite Risk History of Present Illness Date Seen by Provider: May 26, 2019 Time Seen by Provider: 21:30 Initial Comments 28-year-old male brought by EMS after having a seizure at approximately 2039 at [facility]. His last seizure was in November 2018. He is taking Lamictal reports not missing any doses. He is unsure of his prescribing provider, but states that he goes to [place] and gets 3-6 month Rx of his medications. He reports 1-2 seizures each year, even on his medication. Unsure of his last tetanus and noted laceration to left eyebrow. No loss of bowel or bladder with seizure. It was witnessed by a nurse at [facility] and EMS was called, he was not seizing when they arrived. Timing/Duration: 1 hour Associated Symptoms: confusion (mild); No fatigue, No fever/chills, No loss of consciousness, No muscle spasms, No nausea/vomiting, No numbness in legs/feet, No paresthesia, No ringing in ears; seizures; No sleepy, No slurred speech, No tingling in legs/feet, No trouble walking, No vision changes; weakness Allergies and Home Medications Allergies Coded Allergies: hydromorphone (Verified Allergy, Intermediate, hives, 01/06/15) dilaudid administer via IV in recovery, pt arm swell and broke out in hives. vancomycin (Unverified Allergy, Intermediate, hives, 01/06/15) pt stated Home Medications Lamotrigine 200 Mg Tablet, 400 MG PO HS, (Reported) LAST FILLED 01-12-16 TAKES 2 (200MG) TABLETS Lamotrigine 200 Mg Tablet, 200 MG PO 0800,1400, (Reported) LAST FILLED 01-12-16 Lamotrigine 200 Mg Tab, 200 MG PO BID Prescribed by: EMILY MARCOS on 08/23/17 1730 Lorazepam 1 Mg Tablet, 1 MG PO DAILY PRN for SEIZURE ACTIVITY, (Reported) LAST FILLED #30 2-12-16 Patient Home Medication List Home Medication List Reviewed: Yes Review of Systems Review of Systems Constitutional: no symptoms reported, see HPI Psychiatric/Neurological: See HPI, [place] Seizures All Other Systems Reviewed Negative Unless Noted: Yes Past Gknflzi-Wjycum-Zbwexs Hx Past Med/Social Hx: Reviewed Nursing Past Med/Soc Hx Patient Social History Alcohol Beverage of Choice: Other Drug of Choice: Marjuana Type Used: Cigarettes Recent Foreign Travel: No Contact w/Someone Who Travel: No Recent Infectious Disease Expo: No Recent Hopitalizations: No Immunizations Up To Date Tetanus Booster (TDap): Less than 5yrs PED Vaccines UTD: No Date of Pneumonia Vaccine: Mar 08, 2010 Date of Influenza Vaccine: Jul 27, 2014 Seasonal Allergies Seasonal Allergies: No Past Medical History Surgeries: Yes (L RIB REMOVAL ) Lobectomy Respiratory: Yes (REPORTEDLY HAD LOBECTOMY POST-PNEUMONIA) Pneumonia Currently Using CPAP: No Currently Using BIPAP: No Cardiac: No Neurological: Yes Seizure Disorder Reproductive Disorders: No Sexually Transmitted Disease: No HIV/AIDS: No Genitourinary: No Gastrointestinal: No Musculoskeletal: No Endocrine: No HEENT: No Loss of Vision: Denies Hearing Impairment: Denies Cancer: No Psychosocial: Yes Suicide Attempts Integumentary: No Blood Disorders: No Adverse Reaction/Blood Tranf: No Family Medical History Family history: Diabetes mellitus 03 FATHER, Onset:40's - 50 Family history: Hypertension 03 FATHER, Onset:40's - 50 Psychotic disorder 09 SISTER (AUTISTIC) Seizure disorder 03 FATHER, Onset:15's - 20 No Pertinent Family Hx, Seizures Physical Exam Vital Signs Vital Signs - First Documented 05/26/19 21:26 Temp 36.6 Pulse 105 Resp 19 B/P (MAP) 129/80 (96) Pulse Ox 98 O2 Delivery Room Air Capillary Refill : Less Than 3 Seconds Height, Weight, BMI Height: 6'11.00" Weight: 160lbs. 4.0oz. [id number]; 20.00 BMI Method:Estimated General Appearance: WD/WN, no apparent distress HEENT: PERRL/EOMI, normal ENT inspection, TMs normal, pharynx normal, other (1 cm superficial laceration to the left eyebrow, laterally) Neck: non-tender, supple, normal inspection; No tender lateral, No tender midli ne; other (c-collar in place) Respiratory: chest non-tender, lungs clear Cardiovascular: normal peripheral pulses, regular rate, rhythm Gastrointestinal: normal bowel sounds, non tender, soft Neurologic/Psychiatric: falafel cart cook II-XII nml as tested, no motor/sensory deficits, alert, normal mood/affect, oriented x 3 Crainal Nerves: normal hearing, PERRL Coordination/Gait: normal finger to nose Motor/Sensory: no motor deficit, no sensory deficit Skin: normal color, warm/dry Lymphatic: no adenopathy Procedures/Interventions Wound Location: Face (left eyebrow, laterally) Wound Length (cm): 1 Wound's Depth, Shape: superficial Wound Explored: clean Irrigated w/ Saline (ccs): 100 Betadine Prep?: Yes Suture Size: 5-0 Other Closure Supply: Wound Adhesive Sterile Dressing Applied?: No Progress Wound well approximated with adhesive. No bleeding. Patient tolerated well. Progress/Results/Core Measures Results/Orders Lab Results Laboratory Tests Test 05/26/19 21:25 05/26/19 22:19 Range/Units White Blood Count 8.1 4.3-11.0 10^3/uL Red Blood Count 4.54 4.35-5.85 10^6/uL Hemoglobin 13.6 13.3-17.7 G/DL Hematocrit 42 40-54 % Mean Corpuscular Volume 91 80-99 FL Mean Corpuscular Hemoglobin 30 25-34 PG Mean Corpuscular Hemoglobin Concent 33 32-36 G/DL Red Cell Distribution Width 13.0 10.0-14.5 % Platelet Count 386 130-400 10^3/uL Mean Platelet Volume 10.0 7.4-10.4 FL Neutrophils (%) (Auto) 51 42-75 % Lymphocytes (%) (Auto) 36 12-44 % Monocytes (%) (Auto) 7 0-12 % Eosinophils (%) (Auto) 5 0-10 % Basophils (%) (Auto) 1 0-10 % Neutrophils # (Auto) 4.1 1.8-7.8 X 10^3 Lymphocytes # (Auto) 2.9 1.0-4.0 X 10^3 Monocytes # (Auto) 0.6 0.0-1.0 X 10^3 Eosinophils # (Auto) 0.4 H 0.0-0.3 10^3/uL Basophils # (Auto) 0.1 0.0-0.1 10^3/uL Sodium Level 142 135-145 MMOL/L Potassium Level 3.8 3.6-5.0 MMOL/L Chloride Level 106 98-107 MMOL/L Carbon Dioxide Level 20 L 21-32 MMOL/L Anion Gap 16 H 5-14 MMOL/L Blood Urea Nitrogen 9 7-18 MG/DL Creatinine 1.13 0.60-1.30 MG/DL Estimat Glomerular Filtration Rate > 60 BUN/Creatinine Ratio 8 Glucose Level 84 70-105 MG/DL Calcium Level 9.6 8.5-10.1 MG/DL Corrected Calcium 9.3 8.5-10.1 MG/DL Total Bilirubin 0.3 0.1-1.0 MG/DL Aspartate Amino Transf (AST/SGOT) 21 5-34 U/L Alanine Aminotransferase (ALT/SGPT) 26 0-55 U/L Alkaline Phosphatase 92 40-136 U/L Total Protein 7.0 6.4-8.2 GM/DL Albumin 4.4 3.2-4.5 GM/DL Acetaminophen Level < 10 L 10-30 UG/ML Serum Alcohol < 10 <10 MG/DL Urine Color YELLOW Urine Clarity CLEAR Urine pH 6.5 5-9 Urine Specific [place] 1.015 L 1.016-1.022 Urine Protein 1+ H NEGATIVE Urine Glucose (UA) NEGATIVE NEGATIVE Urine Ketones NEGATIVE NEGATIVE Urine Nitrite NEGATIVE NEGATIVE Urine Bilirubin NEGATIVE NEGATIVE Urine Urobilinogen NORMAL NORMAL MG/DL Urine Leukocyte Esterase NEGATIVE NEGATIVE Urine RBC (Auto) NEGATIVE NEGATIVE Urine RBC NONE /HPF Urine WBC NONE /HPF Urine Crystals NONE /LPF Urine Bacteria NEGATIVE /HPF Urine Casts NONE /LPF Urine Mucus NEGATIVE /LPF Urine Other FEW SPERM H /HPF Urine Culture Indicated NO Urine Opiates Screen NEGATIVE NEGATIVE Urine Oxycodone Screen NEGATIVE NEGATIVE Urine Methadone Screen NEGATIVE NEGATIVE Urine Propoxyphene Screen NEGATIVE NEGATIVE Urine Barbiturates Screen NEGATIVE NEGATIVE Ur Tricyclic Antidepressants Screen NEGATIVE NEGATIVE Urine Phencyclidine Screen NEGATIVE NEGATIVE Urine Amphetamines Screen POSITIVE H NEGATIVE Urine Methamphetamines Screen NEGATIVE NEGATIVE Urine Benzodiazepines Screen NEGATIVE NEGATIVE Urine Cocaine Screen NEGATIVE NEGATIVE Urine Cannabinoids Screen NEGATIVE NEGATIVE My Orders Orders - BELL MOSELEY EPIC PRELUDE ANALYST Ct Head/Cervical Spine Wo (05/26/19 21:28) Acetaminophen (05/26/19 21:30) Alcohol (05/26/19 21:30) Cbc With Automated Diff (05/26/19 21:30) Comprehensive Metabolic Panel (05/26/19 21:30) Drug Screen Stat (Urine) (05/26/19 21:30) Ua Culture If Indicated (05/26/19 21:30) Dipht,Pertuss(Acell),Tet Adult (Boostrix (05/26/19 21:30) Medications Given in ED Current Medications Medications Dose Ordered Sig/Hiren Route Start Time Stop Time Status Last Admin Dose Admin Diphtheria/ Tetanus/Acell Pertussis 0.5 ml ONCE ONCE IM 05/26/19 21:30 05/26/19 21:32 DC 05/26/19 22:12 0.5 ML Vital Signs/I&O 05/26/19 05/26/19 21:26 22:53 Temp 36.6 36.6 Pulse 105 105 Resp 19 19 B/P (MAP) 129/80 (96) 129/80 (96) Pulse Ox 98 98 O2 Delivery Room Air Blood Pressure Mean: 96 Progress Progress Note : Time: 21:30 Progress Note Patient seen and evaluated, will obtain a CT of the head and neck. Denies headache or nausea at this time. Wound to left eyebrow cleaned with sterile saline and chlorhexidine. 2215 CT reviewed, no acute findings, c-collar removed. Full range of motion C- spine with no radicular paresthesia symptoms in the upper extremities. No neck pain. Patient's mother is present, she agrees to make sure the patient has follow-up with his prescribing provider for his seizure medication. 2230 discussed with patient that amphetamines are present on UDS. He denies using any medications that would cause this. Stressed importance of not using Rx or Elicit drugs that are stimulants, as this can cause seizure activity. 2240 discharge instructions and return precautions reviewed. All questions answered. Diagnostic Imaging Diagonstic Imaging: CT Plain Films/CT/US/NM/MRI: c-spine, head Comments NAME: ANASTASIAGUILLERMO JR MED REC#: [id number] PT STATUS: REG ER : 1990 PHYSICIAN: BELL MOSELEY ADMIT DATE: 05/26/19/ER Draft Date of Exam:05/26/19 CT HEAD/CERVICAL SPINE WO PROCEDURE: CT head and CT cervical spine without contrast. TECHNIQUE: Multiple contiguous axial images were obtained through the brain and cervical spine without the use of intravenous contrast. Sagittal and coronal reformations through the cervical spine were then performed. Auto Exposure Controls were utilized during the CT exam to meet ALARA standards for radiation dose reduction. INDICATION: Seizure. Facial injury. COMPARISON: 11/15/2015. FINDINGS: CT head: No intracranial hemorrhage, mass effect, hydrocephalus or extra-axial fluid collections. No CT evidence of a territorial infarction. Osseous structures are intact. The visualized paranasal sinuses and mastoids are clear. CT cervical spine: Normal alignment. Vertebral body heights preserved. Stable chronic C7 transverse process fracture. No acute fractures. No evidence of high-grade spinal canal narrowing on this non-contrast exam. The visualized paravertebral soft tissues are unremarkable. IMPRESSION: No acute intracranial or cervical spine CT findings. Dictated on workstation # [id number] Dict: 05/26/192149 Trans: 05/26/193 MARIO [id number] Interpreted by: LISA CEE MD Electronically signed by: Reviewed: Reviewed by Me Departure Impression Primary Impression: Seizure Additional Impressions: Seizure disorder Laceration of left eyebrow without complication Qualified Codes: S01.112A - Laceration without foreign body of left eyelid and periocular area, initial encounter Disposition: 01 HOME, SELF-CARE Condition: Improved Departure-Patient Inst. Decision time for Depature: 22:40 Referrals: [facility] [place] (PCP/Family) Primary Care Physician Patient Instructions: Laceration Repair With Glue (DC), Seizures, Adult (DC) Add. Discharge Instructions: Continue to take Lamictal as prescribed. Follow up with your Primary Care Provider within the next week. Continue no driving and avoid ladders or being off the ground. Progress activity as tolerated. Do not remove wound adhesive, leave in place until it falls off. Do not apply any creams or ointments, especially petroleum based (Vaseline, Neosporin, etc) Tylenol 650 mg every 6-8 hours as needed for headache. Return to the emergency department for new seizure activity, altered mental status, or new urgent concerns. All discharge instructions reviewed with patient and/or family. Voiced understanding. BELL MOSELEY May 26, 2019 22:14
--- NOTE | 2019-05-26 22:15 | NUR ---
C-COLLAR REMOVED AT THIS TIME BY Israel MOSELEY
[2019-05-26 22:24] LABS: BILIRUBIN,URINE NEGATIVE (NEGATIVE); CLARITY,URINE CLEAR; COLOR,URINE YELLOW; GLUCOSE, URINE (UA) NEGATIVE (NEGATIVE); KETONES,URINE NEGATIVE (NEGATIVE); LEUKOCYTE ESTERASE ,URINE NEGATIVE (NEGATIVE); NITRITE,URINE NEGATIVE (NEGATIVE); PH,URINE 6.5 (5-9); PROTEIN,URINE 1+ (NEGATIVE); UROBILINOGEN,URINE NORMAL (NORMAL)
[2019-05-26 22:33] LABS: BACTERIA,URINE NEGATIVE /HPF; URINE OTHER FEW SPERM /HPF
[2019-05-26 22:39] LABS: AMPHETAMINE SCREEN, URINE POSITIVE (NEGATIVE); BARBITURATE SCREEN URINE NEGATIVE (NEGATIVE); BENZODIAZEPINES SCREEN URINE NEGATIVE (NEGATIVE); CANNABINOID SCREEN, URINE NEGATIVE (NEGATIVE); COCAINE SCREEN URINE NEGATIVE (NEGATIVE); METHADONE STAT NEGATIVE (NEGATIVE); METHAMPHETAMINE SCREEN URINE S NEGATIVE (NEGATIVE); OPIATE SCREEN URINE NEGATIVE (NEGATIVE); OXYCODONE STAT NEGATIVE (NEGATIVE); PROPOXYPHENE STAT NEGATIVE (NEGATIVE); TRICYCLIC ANTIDEPRESSANTS SCRE NEGATIVE (NEGATIVE)
[2019-05-26 22:53] VITALS: BP 129/80
== END 2019-05-26 22:53 | disposition home or self-care (01) ==
LOC: EDUNIT# 21:22 → ER 21:23
DX: S01.112A Laceration without foreign body of left eyelid and periocular area, initial encounter (principal); G40.909 Epilepsy, unspecified, not intractable, without status epilepticus; Z23 Encounter for immunization; Z88.1 Allergy status to other antibiotic agents; Z88.8 Allergy status to other drugs, medicaments and biological substances; Z90.2 Acquired absence of lung [part of]; Z91.5 Personal history of self-harm; Z82.49 Family history of ischemic heart disease and other diseases of the circulatory system; W22.8XXA Striking against or struck by other objects, initial encounter; Y92.59 Other trade areas as the place of occurrence of the external cause
CPT/HCPCS: 36415; 70450; 72125; 80053; 80306; 80320; 80329; 81000; 85025; 90471; 90715

== ENCOUNTER 2021-02-06 11:00 | Emergency (ER) | payer SELFPAY ==
[~2021-02-06] VITALS: Ht 0.3 cm; Wt 68.0 kg
[~2021-02-06 11:00] MED LIST changes: -CIPR500T4 PO; +CIPR500T5 PO; -LAMO200T2 PO; +LAMO200T5 PO
[2021-02-06 11:15] LABS: BASOPHILS # (AUTO) 0.1 10^3/uL (0.0-0.1); BASOPHILS % (AUTO) 1 % (0-10); EOSINOPHILS # (AUTO) 0.2 10^3/uL (0.0-0.3); EOSINOPHILS % (AUTO) 3 % (0-10); HEMATOCRIT 43 % (40-54); HEMOGLOBIN 13.9 g/dL (13.3-17.7); LYMPHOCYTES # (AUTO) 2.5 10^3/uL (1.0-4.0); LYMPHOCYTES % (AUTO) 31 % (12-44); MEAN CORPUSCULAR HEMOGLOBIN 29 pg (25-34); MEAN CORPUSCULAR HGB CONC 32 g/dL (32-36); MEAN CORPUSCULAR VOLUME 91 fL (80-99); MEAN PLATELET VOLUME 9.8 fL (9.0-12.2); MONOCYTES # (AUTO) 0.5 10^3/uL (0.0-1.0); MONOCYTES % (AUTO) 7 % (0-12); NEUTROPHILS # (AUTO) 4.5 10^3/uL (1.8-7.8); NEUTROPHILS % (AUTO) 57 % (42-75); PLATELET COUNT 375 10^3/uL (130-400); WHITE BLOOD COUNT 7.8 10^3/uL (4.3-11.0)
[2021-02-06] MEDS ORDERED: LACTATED RINGERS 1,000 ML IV ONE ×2 (11:15→12:15)
[2021-02-06] MEDS ORDERED: ONDANSETRON 4 MG/2 ML (SDV) Z0FRAN IVP ONE (11:15)
--- NOTE | 2021-02-06 11:18 | ED Neurological Problem ---
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 They said he was sweating looked hot and fell down having a seizure. He is denying pain anywhere but he has little nausea. He has a history of epilepsy with his last seizure being about a year ago. He has been off his Lamictal since August. He typically follows with [facility] but is not sure which provider there. He is out of his prescription. He denies having any fevers chills cough shortness of air nausea vomiting diarrhea dysuria or constipation. EMS reports it is incredibly hot and muggy outside. Patient denies having a previous heat injury. Allergies and Home Medications Allergies Coded Allergies: hydromorphone (Verified Allergy, Intermediate, hives, 01/06/15) dilaudid administer via IV in recovery, pt arm swell and broke out in hives. vancomycin (Unverified Allergy, Intermediate, hives, 01/06/15) pt stated Home Medications Lamotrigine 200 Mg Tablet, 400 MG PO HS, (Reported) LAST FILLED 01-12-16 TAKES 2 (200MG) TABLETS Lamotrigine 200 Mg Tablet, 200 MG PO 0800,1400, (Reported) LAST FILLED 01-11-16 Lamotrigine 200 Mg Tab, 200 MG PO BID Prescribed by: EMILY MARCOS on 08/23/17 1730 Lorazepam 1 Mg Tablet, 1 MG PO DAILY PRN for SEIZURE ACTIVITY, (Reported) LAST FILLED #30 16 Patient Home Medication List Home Medication List Reviewed: Yes Review of Systems Review of Systems Constitutional: No chills, No diaphoresis Eyes: Denies Blindness, Denies Drainage Ears, Nose, Mouth, Throat: denies ear pain, denies ear discharge Respiratory: No cough, No short of breath Cardiovascular: No chest pain, No palpitations Gastrointestinal: No abdominal pain; nausea; No vomiting Genitourinary: No discharge, No dysuria Musculoskeletal: No back pain, No joint pain All Other Systems Reviewed Negative Unless Noted: Yes Past Qhnkspq-Pbqqqc-Xlpken Hx Patient Social History Alcohol Use: Denies Use Alcohol Beverage of Choice: Other Drug of Choice: Marjuana Smoking Status: Current Everyday Smoker Type Used: Cigarettes (1 pack/day) Recent Hopitalizations: No Immunizations Up To Date Tetanus Booster (TDap): Less than 5yrs PED Vaccines UTD: No Date of Pneumonia Vaccine: Mar 08, 2010 Date of Influenza Vaccine: Jul 27, 2014 Seasonal Allergies Seasonal Allergies: No Past Medical History Surgeries: Yes (L RIB REMOVAL ) Lobectomy Respiratory: Yes (REPORTEDLY HAD LOBECTOMY POST-PNEUMONIA) Pneumonia Currently Using CPAP: No Currently Using BIPAP: No Cardiac: No Neurological: Yes Seizure Disorder Reproductive Disorders: No Sexually Transmitted Disease: No HIV/AIDS: No Genitourinary: No Gastrointestinal: No Musculoskeletal: No Endocrine: No HEENT: No Loss of Vision: Denies Hearing Impairment: Denies Cancer: No Psychosocial: Yes Suicide Attempts Integumentary: No Blood Disorders: No Adverse Reaction/Blood Tranf: No Family Medical History Family history: Diabetes mellitus 03 FATHER, Onset:40's - 50 Family history: Hypertension 03 FATHER, Onset:40's - 50 Psychotic disorder 09 SISTER (AUTISTIC) Seizure disorder 03 FATHER, Onset:15's - 20 No Pertinent Family Hx, Seizures Physical Exam Vital Signs Vital Signs - First Documented 02/06/21 11:00 Temp 36.8 Pulse 93 Resp 18 B/P (MAP) 111/73 (86) Pulse Ox 96 Capillary Refill : Height, Weight, BMI Height: 6'11.00" Weight: 160lbs. 4.0oz. [id number]; 20.00 BMI Method:Estimated General Appearance: WD/WN, mild distress HEENT: PERRL/EOMI, pharynx normal Neck: full range of motion, normal inspection Respiratory: lungs clear, normal breath sounds, no respiratory distress, no accessory muscle use Cardiovascular: normal peripheral pulses, regular rate, rhythm Peripheral Pulses: 2+ Radial Pulses (R), 2+ Radial Pulses (L) Gastrointestinal: normal bowel sounds, non tender, soft Extremities: non-tender, normal inspection, normal capillary refill Neurologic/Psychiatric: alert, normal mood/affect, oriented x 3 Crainal Nerves: normal hearing, normal speech, PERRL Motor/Sensory: no motor deficit, no sensory deficit Skin: warm/dry (Hot, flushed), damp Procedures/Interventions Suture Size: 5-0 Progress/Results/Core Measures Results/Orders Lab Results Laboratory Tests Test 02/06/21 11:06 Range/Units White Blood Count 7.8 4.3-11.0 10^3/uL Red Blood Count 4.75 4.30-5.52 10^6/uL Hemoglobin 13.9 13.3-17.7 g/dL Hematocrit 43 40-54 % Mean Corpuscular Volume 91 80-99 fL Mean Corpuscular Hemoglobin 29 25-34 pg Mean Corpuscular Hemoglobin Concent 32 32-36 g/dL Red Cell Distribution Width 12.8 10.0-14.5 % Platelet Count 375 130-400 10^3/uL Mean Platelet Volume 9.8 9.0-12.2 fL Immature Granulocyte % (Auto) 1 % Neutrophils (%) (Auto) 57 42-75 % Lymphocytes (%) (Auto) 31 12-44 % Monocytes (%) (Auto) 7 0-12 % Eosinophils (%) (Auto) 3 0-10 % Basophils (%) (Auto) 1 0-10 % Neutrophils # (Auto) 4.5 1.8-7.8 10^3/uL Lymphocytes # (Auto) 2.5 1.0-4.0 10^3/uL Monocytes # (Auto) 0.5 0.0-1.0 10^3/uL Eosinophils # (Auto) 0.2 0.0-0.3 10^3/uL Basophils # (Auto) 0.1 0.0-0.1 10^3/uL Immature Granulocyte # (Auto) 0.1 0.0-0.1 10^3/uL Sodium Level 140 135-145 MMOL/L Potassium Level 3.8 3.6-5.0 MMOL/L Chloride Level 105 98-107 MMOL/L Carbon Dioxide Level 18 L 21-32 MMOL/L Anion Gap 17 H 5-14 MMOL/L Blood Urea Nitrogen 11 7-18 MG/DL Creatinine 1.07 0.60-1.30 MG/DL Estimat Glomerular Filtration Rate > 60 BUN/Creatinine Ratio 10 Glucose Level 104 70-105 MG/DL Calcium Level 9.2 8.5-10.1 MG/DL Corrected Calcium 9.0 8.5-10.1 MG/DL Total Bilirubin 0.6 0.1-1.0 MG/DL Aspartate Amino Transf (AST/SGOT) 19 5-34 U/L Alanine Aminotransferase (ALT/SGPT) 17 0-55 U/L Alkaline Phosphatase 68 40-136 U/L Total Creatine Kinase 252 H 30-200 U/L Total Protein 7.2 6.4-8.2 GM/DL Albumin 4.2 3.2-4.5 GM/DL My Orders Orders - HAO FREITAS Ed Iv/Invasive Line Start (02/06/21 11:08) Lactated Ringers (Lr 1000 Ml Iv Solution (02/06/21 11:15) Lamotrigine Tablet (Lamictal Tablet) (02/06/21 11:15) Ondansetron Injection (Zofran Injectio (02/06/21 11:15) Cbc With Automated Diff (02/06/21 11:08) Comprehensive Metabolic Panel (02/06/21 11:08) Ekg Tracing (02/06/21 11:08) Continuous Ekg Monitoring (02/06/21 11:08) Ua Culture If Indicated (02/06/21 11:08) Creatine Kinase (02/06/21 11:18) Medications Given in ED Current Medications Medications Dose Ordered Sig/Hiren Route Start Time Stop Time Status Last Admin Dose Admin Lactated Ringer's 1,000 ml @ 0 mls/hr Q0M ONCE IV 02/06/21 11:15 02/06/21 11:16 DC 02/06/21 11:40 0 MLS/HR Lamotrigine 100 mg ONCE ONCE PO 02/06/21 11:15 02/06/21 11:16 DC 02/06/21 11:55 100 MG Ondansetron HCl 4 mg ONCE ONCE IVP 02/06/21 11:15 02/06/21 11:16 DC 02/06/21 11:40 4 MG Vital Signs/I&O 02/06/21 11:00 Temp 36.8 Pulse 93 Resp 18 B/P (MAP) 111/73 (86) Pulse Ox 96 Progress Progress Note : Time: 11:15 Progress Note Suspect a combination of a heat injury and being off his Lamictal has triggered a seizure today. We will give him a dose of Lamictal and a prescription as well as a prescription discount card and instructions to follow-up with his primary care doctor. We are going to check some labs give him a liter of fluids in addition to the liter of fluids he has received from EMS. We will get a put him off work for couple days and a standard heat casualty management. Zofran for his nausea. Patient is in agreement with this plan. Exertional heat exhaustion. No heat stroke as he is neurologically normal after some cooling and fluids. His body temperature is normal. He is sweating appropriately still. Initial ECG Impression Date: Feb 06, 2021 Initial ECG Impression Time: 11:16 Initial ECG Rate: 81 Initial ECG Rhythm: Normal Sinus Initial ECG Intervals: Normal Initial ECG Impression: Normal Comment Normal sinus rhythm without clinically relevant ST changes. Departure Impression Primary Impression: Seizure Additional Impressions: Heat exhaustion, unspecified Exertional rhabdomyolysis Disposition: HOME, SELF-CARE Condition: Stable Departure-Patient Inst. Decision time for Depature: 12:00 Referrals: [facility] (PCP/Family) Primary Care Physician Patient Instructions: Heat Exhaustion and Heat Stroke (DC), Rhabdomyolysis Add. Discharge Instructions: I suspect that your seizure was triggered by heat exhaustion as evidenced by your dehydration and rhabdomyolysis. The treatment is you need to take it easy and stay in an air conditioned area for the next 2 to 3 days and drink lots of fluids. Sports drinks are recommended. Make sure you are drinking more fluids when you work especially in the heat. If you are working in a hot environment with high humidity you may need to drink 1 to 1-1/2 L of fluid every hour or more. If you stop sweating or are not urinating frequently then you need to stop working and get into the shade and drink more fluids. After your first heat injury you are more likely to experience another heat injury and you should take this into account when working outside. Follow-up with your primary care doctor to restart your medications. Prescription of Lamictal has been sent to the pharmacy, [facility]. Zofran 1 tablet every 6 hours as necessary for nausea and/or vomiting. Sometimes diarrhea occurs and you can use loperamide/Imodium to help slow this down. Scripts Ondansetron (Ondansetron Odt) 4 Mg Tab.rapdis 4 MG PO Q6H PRN for NAUSEA/VOMITING, #8 TAB 0 Refills Prov: HAO FREITSA 02/06/21 Lamotrigine (Lamictal) 200 Mg Tab 200 MG PO BID for 14 Days, #30 TAB 0 Refills Prov: HAO FREITAS 02/06/21 Work/School Note: Work Release Form Date Seen in the Emergency Department: Feb 06, 2021 Return to Work: Feb 09, 2021 Restrictions: No Restrictions HAO FREITAS Feb 06, 2021 11:18
[2021-02-06 11:25] LABS: ALBUMIN 4.2 GM/DL (3.2-4.5); CHLORIDE 105 MMOL/L (98-107); POTASSIUM 3.8 MMOL/L (3.6-5.0); SODIUM 140 MMOL/L (135-145)
[2021-02-06 11:26] LABS: CALCIUM 9.2 MG/DL (8.5-10.1)
[2021-02-06 11:27] LABS: GLUCOSE 104 MG/DL (70-105); TOTAL PROTEIN 7.2 GM/DL (6.4-8.2)
[2021-02-06 11:28] LABS: CARBON DIOXIDE 18 MMOL/L (21-32)
[2021-02-06 11:29] LABS: BILIRUBIN,TOTAL 0.6 MG/DL (0.1-1.0)
[2021-02-06 11:31] LABS: ALKALINE PHOSPHATASE 68 U/L (40-136); CREATININE SERUM 1.07 MG/DL (0.60-1.30); GFR ESTIMATED > 60
[2021-02-06 11:32] LABS: BUN/CREATININE RATIO 10
[2021-02-06 11:34] LABS: ALANINE AMINOTRANSFERASE 17 U/L (0-55)
[2021-02-06] MEDS ORDERED: ONDA4TAB11 PO ×2 (12:03→12:04)
[2021-02-06] MEDS ORDERED: NF-LAMO200 PO ×2 (12:03→12:04)
[2021-02-06 13:28] VITALS: BP 106/54
== END 2021-02-06 13:28 | disposition home or self-care (01) ==
LOC: EDUNIT# 11:00 → ER 11:01
DX: G40.909 Epilepsy, unspecified, not intractable, without status epilepticus (principal); T67.5XXA Heat exhaustion, unspecified, initial encounter; M62.82 Rhabdomyolysis; F17.210 Nicotine dependence, cigarettes, uncomplicated
CPT/HCPCS: 36415; 80053; 82550; 85025; 93005

== ENCOUNTER 2021-06-07 22:17 | Emergency (ER) | payer SELFPAY ==
[~2021-06-07] VITALS: Ht 180 cm; Wt 63.5 kg
[~2021-06-07 22:17] MED LIST changes: +ONDA4TAB11 PO
[2021-06-07] MEDS ORDERED: TETANUS,DIPTH,PERTUSS P/F (BOOSTRIX) 0.5 ML VIAL IM ONE (22:30)
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
[2021-06-07] MEDS ORDERED: RX-CEPHALEXIN (KEFLEX) 250 MG CAP PPK#4 PO STA (23:44)
[2021-06-07] MEDS ORDERED: ACHD5005 PO (23:44)
[2021-06-07] MEDS ORDERED: CEPH500T PO (23:44)
[2021-06-07 23:50] VITALS: BP 121/79
== END 2021-06-07 23:52 | disposition home or self-care (01) ==
LOC: EDUNIT# 22:17 → ER 22:19
DX: S06.0X0A Concussion without loss of consciousness, initial encounter (principal); S01.112A Laceration without foreign body of left eyelid and periocular area, initial encounter; S02.40FA Zygomatic fracture, left side, initial encounter for closed fracture; G40.909 Epilepsy, unspecified, not intractable, without status epilepticus; F17.210 Nicotine dependence, cigarettes, uncomplicated; Z23 Encounter for immunization; Z20.822 Contact with and (suspected) exposure to COVID-19; Z79.899 Other long term (current) drug therapy; Z88.5 Allergy status to narcotic agent; Y00.XXXA Assault by blunt object, initial encounter
CPT/HCPCS: 70450; 70486; 72125; 87636; 90715